=== PATIENT | female | born 1950 | race Caucasian/White ===

== ENCOUNTER 2017-01-11 19:27 | Emergency (ER) | payer OTHER ==
[~2017-01-11] VITALS: Ht 157.5 cm; Wt 57.6 kg
[2017-01-11 21:05] LABS: HEMATOCRIT 40.7 % (36.0-46.0); MCH 28.3 PG (29.0-34.0); MCHC 33.7 G/DL (30.0-36.0); MCV 84.1 FL (83-99); MEAN PLAT.VOLUME 9.3 uM^3 (9.5-12.4); PLATELET COUNT 232 K/uL (156-360); RBC DIS.WIDTH-CV 13.5 % (11.8-14.6); RBC DIS.WIDTH-SD 40.9 % (39-53); RED BLOOD COUNT 4.84 M/uL (3.80-5.20); WHITE BLOOD COUNT 12.1 K/uL (4.1-10.2)
[2017-01-11 21:14] LABS: CHLORIDE 107 mEq/L (99-109); POTASSIUM 4.3 mEq/L (3.7-5.4); SODIUM 142 mEq/L (136-147)
[2017-01-11 21:16] LABS: GLUCOSE 108 mg/dL (70-99)
[2017-01-11 21:18] LABS: ANION GAP 9 MEQ/L (2-14)
[2017-01-11 21:20] LABS: GFR ESTIMATE (CALCULATED) 48 mL/min/
[2017-01-11 21:21] LABS: UREA NITROGEN (BUN) 28 mg/dL (9-23)
[2017-01-11 21:45] LABS: ADD MIUA? YES; BILIRUBIN NEGATIVE; BLOOD LARGE; COLOR YELLOW ((YELLOW)); GLUCOSE (STRIP) NEGATIVE; KETONES 80; LEUKOCYTES NEGATIVE; NITRITE NEGATIVE; PROTEIN (STRIP) 30; SPECIFIC GRAVITY 1.016 (1.000-1.030); UROBILINOGEN 0.2 MG/DL (0.2-1.0)
[2017-01-11 22:43] LABS: BACTERIA RARE /HPF; EPITHELIAL CELLS 1+ /HPF; HYALINE CASTS 0-5 /LPF; MUCUS TRACE /LPF; RED BLOOD CELLS TNTC /HPF (0-5); UCUL ADDED? NO; WHITE BLOOD CELLS 15-20 /HPF (0-5)
[2017-01-11] MEDS ORDERED: FLOMAX0.4 MG PO (23:26)
[2017-01-11] MEDS ORDERED: NORCO 5/3251 TABLET PO (23:26)
[2017-01-11] MEDS ORDERED: ZOFRAN ODT4 MG PO (23:26)
[2017-01-11 23:51] VITALS: BP 132/90
== END 2017-01-12 00:04 | disposition home or self-care (01) ==
LOC: EME 19:27
DX: N20.0 Calculus of kidney (principal); R31.9 Hematuria, unspecified; R35.0 Frequency of micturition
CPT/HCPCS: 74176; 80048; 81003; 85027; 99281; 99284